=== PATIENT | female | born 1940 | race Caucasian/White ===

== ENCOUNTER 2017-04-01 13:58 | Emergency (ER) | payer BC ==
[~2017-04-01] VITALS: Ht 180.3 cm; Wt 79.7 kg
[2017-04-01] MEDS ORDERED: ULTRAM50 MG PO (18:34)
[2017-04-01] MEDS ORDERED: MOTRIN600 MG PO (18:34)
[2017-04-01 19:49] VITALS: BP 140/86
== END 2017-04-01 21:12 | disposition home or self-care (01) ==
LOC: EME 13:58
DX: M48.06 Spinal stenosis, lumbar region (principal); M43.16 Spondylolisthesis, lumbar region; M51.26 Other intervertebral disc displacement, lumbar region; F03.90 Unspecified dementia, unspecified severity, without behavioral disturbance, psychotic disturbance, mood disturbance, and anxiety; E78.5 Hyperlipidemia, unspecified; I10 Essential (primary) hypertension
CPT/HCPCS: 72131; 99281; 99284; J1885

== ENCOUNTER 2017-04-10 14:50 | Inpatient (IN) | payer BC ==
[~2017-04-10] VITALS: Ht 162.6 cm; Wt 81.8 kg
[~2017-04-10 14:50] MED LIST: MOTRIN600 MG PO; ULTRAM50 MG PO
[2017-04-10 16:58] LABS: HEMATOCRIT 37.5 % (36.0-46.0); MCH 31.7 PG (29.0-34.0); MCHC 33.6 G/DL (30.0-36.0); MCV 94.2 FL (83-99); MEAN PLAT.VOLUME 8.6 uM^3 (9.5-12.4); PLATELET COUNT 487 K/uL (156-360); RBC DIS.WIDTH-CV 13.4 % (11.8-14.6); RBC DIS.WIDTH-SD 46.8 % (39-53); RED BLOOD COUNT 3.98 M/uL (3.80-5.20); WHITE BLOOD COUNT 8.1 K/uL (4.1-10.2)
[2017-04-10 17:09] LABS: CHLORIDE 104 mEq/L (99-109); POTASSIUM 3.9 mEq/L (3.7-5.4); SODIUM 137 mEq/L (136-147)
[2017-04-10 17:11] LABS: GLUCOSE 117 mg/dL (70-99)
[2017-04-10 17:12] LABS: ANION GAP 7 MEQ/L (2-14)
[2017-04-10 17:15] LABS: GFR ESTIMATE (CALCULATED) > 59 mL/min/; UREA NITROGEN (BUN) 20 mg/dL (9-23)
[2017-04-10 17:19] LABS: TROP-I INTERPRETATION NEGATIVE; TROPONIN-I 0.02 ng/mL (0.0-0.30)
[2017-04-10 18:03] LABS: BILIRUBIN NEGATIVE; BLOOD NEGATIVE; COLOR YELLOW ((YELLOW)); GLUCOSE (STRIP) NEGATIVE; KETONES 5; LEUKOCYTES NEGATIVE; NITRITE NEGATIVE; PROTEIN (STRIP) NEGATIVE; SPECIFIC GRAVITY 1.019 (1.000-1.030)
[2017-04-10 18:04] LABS: ADD MIUA? NO; UCUL ADDED? NO
[2017-04-10] MEDS ORDERED: OLANZAPINE2.5 MG PO (19:42)
[2017-04-10] MEDS ORDERED: LIPITOR20 MG PO (19:42)
[2017-04-10] MEDS ORDERED: VITAMIN D2000 UNI1 PO (19:43)
[2017-04-10] MEDS ORDERED: ULTRAM50 MG PO (19:44)
[2017-04-10] MEDS ORDERED: TYLENOL REGULA325 MG PO (19:44)
[2017-04-10] MEDS ORDERED: IBUPROFEN600 MG PO (20:10)
[2017-04-10] MEDS ORDERED: NEURONTIN100 MG PO (20:11)
[2017-04-10] MEDS ORDERED: CORTISONE57 GM TP (20:21)
[2017-04-10 20:36] VITALS: BP 132/58
[2017-04-10 23:12] LABS: TOTAL BILIRUBIN 0.4 mg/dL (0.0-1.0)
[2017-04-10 23:13] LABS: ALKALINE PHOSPHATASE 157 IU/L (3-129)
[2017-04-10 23:16] LABS: DIRECT BILIRUBIN 0.2 mg/dL (0.0-0.3)
[2017-04-11 00:45] VITALS: BP 102/58
[2017-04-11 04:10] VITALS: BP 109/53
[2017-04-11 10:18] VITALS: BP 107/51
[2017-04-11 11:34] VITALS: BP 109/56
[2017-04-11 15:12] VITALS: BP 99/55
[2017-04-11 21:47] VITALS: BP 116/68
[2017-04-12 00:03] VITALS: BP 105/57
[2017-04-12 03:41] VITALS: BP 92/55
[2017-04-12 08:47] VITALS: BP 123/60
[2017-04-12 12:00] VITALS: BP 100/53
[2017-04-12 16:00] VITALS: BP 100/52
[2017-04-12 19:35] VITALS: BP 141/59
[2017-04-13 01:07] VITALS: BP 105/55
[2017-04-13 04:43] VITALS: BP 112/64
[2017-04-13 09:24] VITALS: BP 104/59
[2017-04-13 11:29] VITALS: BP 105/60
[2017-04-13 16:10] VITALS: BP 106/53
[2017-04-14 00:43] VITALS: BP 139/80
[2017-04-14 04:00] VITALS: BP 137/94
[2017-04-14 08:00] VITALS: BP 150/70
[2017-04-14] MEDS ORDERED: MORPHINE SULFAT15 M1 PO (12:34)
[2017-04-14] MEDS ORDERED: HYDROCODON-ACE1 EAC7 PO (12:34)
[2017-04-14 15:56] VITALS: BP 110/66
[2017-04-14 19:31] VITALS: BP 109/58
[2017-04-15] VITALS (8 sets, daily range): BP systolic 85–128; BP diastolic 48–59
[2017-04-16 07:30] VITALS: BP 103/57
[2017-04-16 10:27] VITALS: BP 132/68
[2017-04-16 20:36] VITALS: BP 133/60
[2017-04-16 23:57] VITALS: BP 140/74
[2017-04-17 11:13] VITALS: BP 137/66
[2017-04-17 15:35] VITALS: BP 129/72
== END 2017-04-17 17:12 | DRG 552 ==
LOC: EME 14:50 → EDOF 19:29 → 5WEST 19:29 → ENRESERV 19:33 → CANRESERV 19:33 → ENRESERV 19:52 → 5WEST 20:19 → CANRESERV 04-11 10:56 → ENRESERV 04-11 10:56 → 5WEST 04-17 17:12
PROVIDERS: Emergency Medicine
DX: S32.028A Other fracture of second lumbar vertebra, initial encounter for closed fracture (principal); S32.038A Other fracture of third lumbar vertebra, initial encounter for closed fracture; N31.9 Neuromuscular dysfunction of bladder, unspecified; W06.XXXA Fall from bed, initial encounter; M47.9 Spondylosis, unspecified; I10 Essential (primary) hypertension; E78.5 Hyperlipidemia, unspecified; F03.90 Unspecified dementia, unspecified severity, without behavioral disturbance, psychotic disturbance, mood disturbance, and anxiety; G89.29 Other chronic pain; K59.00 Constipation, unspecified; M48.06 Spinal stenosis, lumbar region; R33.9 Retention of urine, unspecified; M19.90 Unspecified osteoarthritis, unspecified site
CPT/HCPCS: 71010; 72131; 74176; 80048; 80076; 81003; 84484; 85027; 87086; 92610 GN; 97530 GO; 99281; 99285; G0378; G8978 GP CM; G8979 GP CM; G8987 GO CM; G8988 GO CL; J1644; J2270; J2405; J7030

== ENCOUNTER 2017-07-13 18:59 | Inpatient (IN) | payer BC ==
[~2017-07-13] VITALS: Ht 165.1 cm; Wt 66.9 kg
[~2017-07-13 18:59] MED LIST changes: +CORTISONE57 GM TP; +HYDROCODON-ACE1 EAC7 PO; +IBUPROFEN600 MG PO; +LIPITOR20 MG PO; +MORPHINE SULFAT15 M1 PO; +NEURONTIN100 MG PO; +OLANZAPINE2.5 MG PO; +TYLENOL REGULA325 MG PO; +VITAMIN D2000 UNI1 PO
[2017-07-13] MEDS ORDERED: NORCO 5/3251 TABLET PO (21:21)
[2017-07-13 21:22] LABS: ADD MIUA? YES; BILIRUBIN NEGATIVE; BLOOD TRACE; COLOR YELLOW ((YELLOW)); GLUCOSE (STRIP) NEGATIVE; KETONES NEGATIVE; LEUKOCYTES MODERATE; NITRITE NEGATIVE; PROTEIN (STRIP) 30; SPECIFIC GRAVITY 1.005 (1.000-1.030)
[2017-07-13] MEDS ORDERED: BUSPAR5 MG PO (21:25)
[2017-07-13] MEDS ORDERED: GAVILAX17 GM PO (21:25)
[2017-07-13] MEDS ORDERED: MIRTAZAPINE7.5 MG PO (21:25)
[2017-07-13 21:27] LABS: WHITE BLOOD CELLS TNTC /HPF (0-5)
[2017-07-13 21:28] LABS: BACTERIA 1+ /HPF; CASTS PRESENT /LPF; CRYSTALS NONE SEEN; EPITHELIAL CELLS RARE /HPF; HYALINE CASTS RARE /LPF; MUCUS 2+ /LPF; UCUL ADDED? YES
[2017-07-13] MEDS ORDERED: SENEXON-S TABL1 EACH PO (21:30)
[2017-07-13 22:09] LABS: BASOPHIL COUNT 0.1 K/uL (0-0.1); EOSINOPHIL (%) 0.1 % (0-5); HEMATOCRIT 32.1 % (36.0-46.0); IMMATURE GRANULOCYTE (%) 1.8 % (0.0-0.7); IMMATURE GRANULOCYTE COUNT 0.4 K/uL; INSTRUMENT ABS NEUTROPHIL CT 20.4 K/uL; LYMPHOCYTE COUNT 1.8 K/uL (1.0-2.8); MCH 31.2 PG (29.0-34.0); MCHC 32.7 G/DL (30.0-36.0); MCV 95.3 FL (83-99); MEAN PLAT.VOLUME 8.2 uM^3 (9.5-12.4); MONOCYTE (%) 6.2 % (3-12); MONOCYTE COUNT 1.5 K/uL (0-0.8); NEUTROPHIL (%) 84.2 % (45-76); NEUTROPHIL COUNT 20.4 K/uL (1.8-6.4); PLATELET COUNT 387 K/uL (156-360); RBC DIS.WIDTH-SD 45.1 % (39-53); RED BLOOD COUNT 3.37 M/uL (3.80-5.20); WHITE BLOOD COUNT 24.3 K/uL (4.1-10.2)
[2017-07-13 22:19] LABS: CHLORIDE 103 mEq/L (99-109); SODIUM 139 mEq/L (136-147)
[2017-07-13 22:21] LABS: GLUCOSE 145 mg/dL (70-99)
[2017-07-13 22:22] LABS: ANION GAP 8 MEQ/L (2-14)
[2017-07-13 22:23] LABS: TOTAL BILIRUBIN 0.7 mg/dL (0.0-1.0)
[2017-07-13 22:24] LABS: ALKALINE PHOSPHATASE 100 IU/L (3-129)
[2017-07-13 22:25] LABS: GFR ESTIMATE (CALCULATED) > 59 mL/min/
[2017-07-13 22:26] LABS: UREA NITROGEN (BUN) 14 mg/dL (9-23)
[2017-07-14] VITALS (15 sets, daily range): BP systolic 63–94; BP diastolic 34–54
[2017-07-14 03:58] LABS: C DIFF TOXIN NEGATIVE (NEGATIVE)
[2017-07-14 04:02] LABS: PROBE CHECK PASS; SPECIMEN PROCESSING CONTROL PASS
[2017-07-14 05:25] LABS: HEMATOCRIT 27.9 % (36.0-46.0); MCH 30.7 PG (29.0-34.0); MCHC 31.9 G/DL (30.0-36.0); MCV 96.2 FL (83-99); MEAN PLAT.VOLUME 8.7 uM^3 (9.5-12.4); PLATELET COUNT 361 K/uL (156-360); RBC DIS.WIDTH-SD 46.5 % (39-53); WHITE BLOOD COUNT 22.1 K/uL (4.1-10.2)
[2017-07-14 05:38] LABS: METH RESISTANT S AUREUS PCR NEGATIVE (NEGATIVE)
[2017-07-14 05:40] LABS: PROBE CHECK PASS; SPECIMEN PROCESSING CONTROL PASS
[2017-07-14 05:44] LABS: ANION GAP 7 MEQ/L (2-14); CHLORIDE 108 MEQ/L (99-109); GFR ESTIMATE (CALCULATED) > 59 mL/min/; GLUCOSE 111 mg/dL (70-99); POTASSIUM 3.3 MEQ/L (3.7-5.4); SAMPLE HEMOLYSIS CHECK 0; SAMPLE ICTERIC CHECK 0; SAMPLE LIPEMIA CHECK 0; SODIUM 140 MEQ/L (136-147); UREA NITROGEN (BUN) 14 mg/dL (9-23)
[2017-07-14 06:42] LABS: BASOPHIL COUNT 0.1 K/uL (0-0.1); EOSINOPHIL (%) 0.3 % (0-5); EOSINOPHIL COUNT 0.1 K/uL (0-0.3); HEMATOLOGY COMMENT 1 SMEAR COMPATIBLE; IMMATURE GRANULOCYTE (%) 1.4 % (0.0-0.7); IMMATURE GRANULOCYTE COUNT 0.3 K/uL; INSTRUMENT ABS NEUTROPHIL CT 18.4 K/uL; LYMPHOCYTE COUNT 1.7 K/uL (1.0-2.8); MONOCYTE (%) 7.1 % (3-12); MONOCYTE COUNT 1.6 K/uL (0-0.8); NEUTROPHIL (%) 83.1 % (45-76); NEUTROPHIL COUNT 18.4 K/uL (1.8-6.4)
[2017-07-15] VITALS (10 sets, daily range): BP systolic 0–145; BP diastolic 0–77
[2017-07-15 04:36] LABS: BASOPHIL COUNT 0.1 K/uL (0-0.1); EOSINOPHIL (%) 1.5 % (0-5); EOSINOPHIL COUNT 0.3 K/uL (0-0.3); HEMATOCRIT 30.2 % (36.0-46.0); IMMATURE GRANULOCYTE COUNT 0.2 K/uL; INSTRUMENT ABS NEUTROPHIL CT 16.4 K/uL; LYMPHOCYTE COUNT 1.8 K/uL (1.0-2.8); MCH 30.6 PG (29.0-34.0); MCHC 32.1 G/DL (30.0-36.0); MCV 95.3 FL (83-99); MEAN PLAT.VOLUME 8.7 uM^3 (9.5-12.4); MONOCYTE (%) 4.7 % (3-12); MONOCYTE COUNT 0.9 K/uL (0-0.8); NEUTROPHIL (%) 83.5 % (45-76); NEUTROPHIL COUNT 16.4 K/uL (1.8-6.4); PLATELET COUNT 369 K/uL (156-360); RBC DIS.WIDTH-CV 13.1 % (11.8-14.6); RBC DIS.WIDTH-SD 45.7 % (39-53); RED BLOOD COUNT 3.17 M/uL (3.80-5.20); WHITE BLOOD COUNT 19.6 K/uL (4.1-10.2)
[2017-07-15 04:44] LABS: POTASSIUM 3.4 mEq/L (3.7-5.4)
[2017-07-15 04:45] LABS: SODIUM 143 mEq/L (136-147)
[2017-07-15 04:48] LABS: ANION GAP 9 MEQ/L (2-14)
[2017-07-15 04:50] LABS: ALKALINE PHOSPHATASE 87 IU/L (3-129); GFR ESTIMATE (CALCULATED) > 59 mL/min/
[2017-07-15 04:52] LABS: UREA NITROGEN (BUN) 8 mg/dL (9-23)
[2017-07-15 04:53] LABS: CHLORIDE 115 mEq/L (99-109); GLUCOSE 79 mg/dL (70-99); TOTAL BILIRUBIN 0.5 mg/dL (0.0-1.0)
[2017-07-16 03:56] VITALS: BP 123/59
[2017-07-16 04:44] LABS: BASOPHIL COUNT 0.1 K/uL (0-0.1); EOSINOPHIL COUNT 0.2 K/uL (0-0.3); HEMATOCRIT 31.2 % (36.0-46.0); IMMATURE GRANULOCYTE COUNT 0.2 K/uL; INSTRUMENT ABS NEUTROPHIL CT 13.1 K/uL; LYMPHOCYTE COUNT 1.6 K/uL (1.0-2.8); MCH 29.9 PG (29.0-34.0); MCHC 32.1 G/DL (30.0-36.0); MCV 93.1 FL (83-99); MONOCYTE (%) 5.8 % (3-12); MONOCYTE COUNT 0.9 K/uL (0-0.8); NEUTROPHIL (%) 81.9 % (45-76); NEUTROPHIL COUNT 13.1 K/uL (1.8-6.4); RBC DIS.WIDTH-CV 12.8 % (11.8-14.6); RBC DIS.WIDTH-SD 44.1 % (39-53); RED BLOOD COUNT 3.35 M/uL (3.80-5.20)
[2017-07-16 04:56] LABS: CHLORIDE 113 mEq/L (99-109); POTASSIUM 3.6 mEq/L (3.7-5.4); SODIUM 140 mEq/L (136-147)
[2017-07-16 04:58] LABS: GLUCOSE 77 mg/dL (70-99)
[2017-07-16 04:59] LABS: ANION GAP 8 MEQ/L (2-14)
[2017-07-16 05:01] LABS: GFR ESTIMATE (CALCULATED) > 59 mL/min/
[2017-07-16 05:02] LABS: UREA NITROGEN (BUN) 3 mg/dL (9-23)
[2017-07-16 05:05] LABS: GFR ESTIMATE (CALCULATED) > 59 mL/min/
[2017-07-16 06:02] LABS: MEAN PLAT.VOLUME 9.5 uM^3 (9.5-12.4); PLAT.SUFFICIENCY ADEQUATE; PLATELET COUNT 429 K/uL (156-360)
[2017-07-16 07:31] LABS: VANCOMYCIN, TROUGH 7.6 MCG/ML (10-20)
[2017-07-16 08:00] VITALS: BP 115/58
[2017-07-16 10:54] VITALS: BP 131/70
[2017-07-16 15:54] VITALS: BP 155/90
[2017-07-16 20:29] VITALS: BP 126/62
[2017-07-17 00:38] VITALS: BP 155/53
[2017-07-17 03:57] VITALS: BP 119/64
[2017-07-17 06:27] LABS: BASOPHIL COUNT 0.1 K/uL (0-0.1); EOSINOPHIL (%) 2.2 % (0-5); EOSINOPHIL COUNT 0.3 K/uL (0-0.3); HEMATOCRIT 30.5 % (36.0-46.0); IMMATURE GRANULOCYTE (%) 1.4 % (0.0-0.7); IMMATURE GRANULOCYTE COUNT 0.2 K/uL; INSTRUMENT ABS NEUTROPHIL CT 8.7 K/uL; LYMPHOCYTE COUNT 1.8 K/uL (1.0-2.8); MCH 30.4 PG (29.0-34.0); MCHC 33.1 G/DL (30.0-36.0); MCV 91.9 FL (83-99); MEAN PLAT.VOLUME 8.6 uM^3 (9.5-12.4); MONOCYTE COUNT 0.8 K/uL (0-0.8); NEUTROPHIL (%) 73.5 % (45-76); NEUTROPHIL COUNT 8.7 K/uL (1.8-6.4); PLATELET COUNT 431 K/uL (156-360); RBC DIS.WIDTH-CV 12.8 % (11.8-14.6); RBC DIS.WIDTH-SD 43.1 % (39-53); RED BLOOD COUNT 3.32 M/uL (3.80-5.20); WHITE BLOOD COUNT 11.8 K/uL (4.1-10.2)
[2017-07-17 08:54] VITALS: BP 125/65
[2017-07-17 09:14] LABS: ANION GAP 10 MEQ/L (2-14); CHLORIDE 110 MEQ/L (99-109); GFR ESTIMATE (CALCULATED) > 59 mL/min/; GLUCOSE 83 mg/dL (70-99); POTASSIUM 2.9 MEQ/L (3.7-5.4); SAMPLE HEMOLYSIS CHECK 0; SAMPLE ICTERIC CHECK 0; SAMPLE LIPEMIA CHECK 0; SODIUM 141 MEQ/L (136-147); UREA NITROGEN (BUN) 2 mg/dL (9-23)
[2017-07-17 11:36] VITALS: BP 130/83
[2017-07-17 16:22] VITALS: BP 128/72
[2017-07-17 20:23] VITALS: BP 134/69
[2017-07-18 00:15] VITALS: BP 122/73
[2017-07-18 03:48] VITALS: BP 145/73
[2017-07-18 06:34] LABS: BASOPHIL COUNT 0.1 K/uL (0-0.1); EOSINOPHIL COUNT 0.2 K/uL (0-0.3); HEMATOCRIT 38.2 % (36.0-46.0); IMMATURE GRANULOCYTE (%) 1.4 % (0.0-0.7); IMMATURE GRANULOCYTE COUNT 0.2 K/uL; INSTRUMENT ABS NEUTROPHIL CT 12.1 K/uL; LYMPHOCYTE COUNT 1.4 K/uL (1.0-2.8); MCH 29.6 PG (29.0-34.0); MCHC 32.2 G/DL (30.0-36.0); MEAN PLAT.VOLUME 8.5 uM^3 (9.5-12.4); MONOCYTE (%) 5.1 % (3-12); MONOCYTE COUNT 0.7 K/uL (0-0.8); NEUTROPHIL (%) 82.9 % (45-76); NEUTROPHIL COUNT 12.1 K/uL (1.8-6.4); PLATELET COUNT 479 K/uL (156-360); RBC DIS.WIDTH-CV 13.1 % (11.8-14.6); RBC DIS.WIDTH-SD 44.3 % (39-53); RED BLOOD COUNT 4.15 M/uL (3.80-5.20); WHITE BLOOD COUNT 14.6 K/uL (4.1-10.2)
[2017-07-18 07:01] LABS: ANION GAP 12 MEQ/L (2-14); CHLORIDE 110 MEQ/L (99-109); GFR ESTIMATE (CALCULATED) > 59 mL/min/; GLUCOSE 76 mg/dL (70-99); SAMPLE HEMOLYSIS CHECK 0; SAMPLE ICTERIC CHECK 0; SAMPLE LIPEMIA CHECK 0; SODIUM 142 MEQ/L (136-147); UREA NITROGEN (BUN) 2 mg/dL (9-23)
[2017-07-18 07:09] LABS: POTASSIUM 3.7 MEQ/L (3.7-5.4)
[2017-07-18 08:49] VITALS: BP 137/63
[2017-07-18 11:22] VITALS: BP 132/65
[2017-07-18] MEDS ORDERED: AUGMENTIN875 MG PO (15:54)
[2017-07-18 16:43] VITALS: BP 134/60
== END 2017-07-18 18:05 | DRG 871 ==
LOC: EME → EDBD 18:59 → EME 18:59 → EDOF 22:20 → 5EAST 22:20 → ENRESERV 22:38 → 4WEST 07-14 03:04 → ENRESERV 07-15 16:25 → 5EAST 07-15 18:23
PROVIDERS: Emergency Medicine; Internal Medicine
DX: A41.9 Sepsis, unspecified organism (principal); N39.0 Urinary tract infection, site not specified; N31.9 Neuromuscular dysfunction of bladder, unspecified; G30.9 Alzheimer's disease, unspecified; M48.061 Spinal stenosis, lumbar region without neurogenic claudication; F02.80 Dementia in other diseases classified elsewhere, unspecified severity, without behavioral disturbance, psychotic disturbance, mood disturbance, and anxiety; R65.21 Severe sepsis with septic shock; E78.5 Hyperlipidemia, unspecified; D63.8 Anemia in other chronic diseases classified elsewhere; Z51.5 Encounter for palliative care; Z66 Do not resuscitate; I10 Essential (primary) hypertension; G89.29 Other chronic pain; B36.9 Superficial mycosis, unspecified; Z87.440 Personal history of urinary (tract) infections
CPT/HCPCS: 71010; 80048; 80053; 80202; 81003; 82565; 83605; 83735; 85025; 85027; 87040; 87086; 87493; 87641; 92526 GN; 92610 GN; 94799; 99281; 99285; J1200; J1630; J1650; J2270; J2543; J3370; J3480; J7030; J7040; J7050

== ENCOUNTER → 2017-08-20 | Outpatient (CLI) | payer BC ==
[~2017-08-20] MED LIST changes: +AUGMENTIN875 MG PO; +BUSPAR5 MG PO; +GAVILAX17 GM PO; +MIRTAZAPINE7.5 MG PO; +NORCO 5/3251 TABLET PO; +SENEXON-S TABL1 EACH PO
== END ==
LOC: RAD 10:43
DX: D16.4 Benign neoplasm of bones of skull and face (principal)
CPT/HCPCS: 70450